=== PATIENT | female | born 1930 | race Asian ===

== ENCOUNTER 2017-02-21 07:42 | Day surgery (SDC) | payer MEDICARE, OTHER ==
[~2017-02-21] VITALS: Ht 149.9 cm; Wt 50.5 kg
[~2017-02-21 07:42] MED LIST: CeFAZolin 2 GM/DEXTROSE 50 ML IV ONE; POVIDONE-IODINE 30 GM OINTMENT TP ONE; SODIUM CHLORIDE 0.9% 1,000 ML IV ONE
[2017-02-21 08:42] LABS: BASOPHILS # (AUTO) 0.03 K/uL (0.00-0.20); BASOPHILS % (AUTO) 0.6 % (0.0-2.0); EOSINOPHILS # (AUTO) 0.39 K/uL (0.00-0.70); EOSINOPHILS % (AUTO) 7.27 % (1.0-6.0); HEMATOCRIT 35.1 % (36-46); HEMOGLOBIN 11.4 g/dL (12.0-16.0); LYMPHOCYTES # (AUTO) 1.4 K/uL (1.0-4.8); LYMPHOCYTES % (AUTO) 24.9 % (22.0-44.0); MEAN CORPUSCULAR HEMOGLOBIN 31.2 pg (26.0-34.0); MEAN CORPUSCULAR HGB CONC 32.5 G/dL (31.0-37.0); MEAN CORPUSCULAR VOLUME 96 fL (80-100); MONOCYTES # (AUTO) 0.6 K/uL (0.1-1.0); MONOCYTES % (AUTO) 10.4 % (2.0-9.0); NEUTROPHILS # (AUTO) 3.1 K/uL (1.8-7.7); NEUTROPHILS % (AUTO) 56.8 % (40.0-70.0); PLATELET COUNT (AUTO) 110 K/uL (150-450); RED BLOOD CELL COUNT(AUTO) 3.66 MIL/uL (4.00-5.20); RED CELL DISTRIBUTION WIDTH 17.3 % (11.5-14.5); WHITE BLOOD COUNT (AUTO) 5.4 K/uL (4.5-11.0)
[2017-02-21 08:47] LABS: RBC MORPHOLOGY COMMENT ABNORMAL RBC MORPH
[2017-02-21 08:51] LABS: CALCIUM, TOTAL 9.1 mg/dL (8.8-10.5); CREATININE 8.33 mg/dL (0.60-1.30); POTASSIUM 5.4 mmol/L (3.5-5.1)
[2017-02-21] MEDS ORDERED: PROPOFOL 1000 MG/ISO-OSM 100 ML IV ONE (08:53)
[2017-02-21 08:54] LABS: PROTHROMBIN TIME 10.8 SEC (9.4-11.6)
[2017-02-21] MEDS ORDERED: ALLO100T PO (09:13)
[2017-02-21] MEDS ORDERED: SEVEC800 PO (09:13)
[2017-02-21] MEDS ORDERED: COLC0.6T69 PO (09:13)
[2017-02-21] MEDS ORDERED: METO-323 PO (09:13)
[2017-02-21] MEDS ORDERED: LEVO112T4 PO (09:13)
[2017-02-21] MEDS ORDERED: ATOR40TA28 PO (09:13)
[2017-02-21] MEDS ORDERED: CeFAZolin 2 GM/DEXTROSE 50 ML IV ONE (09:30)
[2017-02-21] MEDS ORDERED: SODIUM CHLORIDE 0.9% 1,000 ML IV ONE (09:30)
[2017-02-21] MEDS: LIDOCAINE HCL/PF 1% 30 ML VIAL ONE ×2 (09:32→09:33)
[2017-02-21] MEDS ORDERED: LIDOCAINE HCL/PF 2% 5 ML VIAL INJ ONE (12:00)
[2017-02-21] MEDS ORDERED: FentaNYL CITRATE-PF 100 MCG/2 ML VIAL IVP ONE (12:00)
[2017-02-21] MEDS ORDERED: EPHEDrine SULFATE 50 MG/ML VIAL IVP ONE (12:00)
[2017-02-21] MEDS ORDERED: PHENYLEPHRINE HCL 10 MG/ML VIAL IVP ONE (12:00)
[2017-02-21] MEDS ORDERED: HEPARIN SODIUM,PORCINE 1,000 UNITS/ML 10 ML VIAL IVP ONE (12:00)
== END 2017-02-21 12:30 | disposition home or self-care (01) ==
LOC: SURGERY 07:42
PROVIDERS: ATTEND Radiology Vascular & Interventional Radiology
DX: E11.22 Type 2 diabetes mellitus with diabetic chronic kidney disease (principal); I12.0 Hypertensive chronic kidney disease with stage 5 chronic kidney disease or end stage renal disease; N18.6 End stage renal disease; D64.9 Anemia, unspecified; M10.9 Gout, unspecified; Z99.2 Dependence on renal dialysis; Z79.4 Long term (current) use of insulin; Z79.01 Long term (current) use of anticoagulants; Z98.890 Other specified postprocedural states; Z90.710 Acquired absence of both cervix and uterus; Z90.49 Acquired absence of other specified parts of digestive tract
CPT/HCPCS: 36415; 36820; 80048; 85025; 85610; 85730; 93005; J0690; J1644; J2370; J2704; J3010; J3490 ×3; J7030